=== PATIENT | male | born 1950 | race Caucasian/White ===

== ENCOUNTER → 2016-10-06 | Outpatient (CLI) | payer OTHER ==
[~2016-10-06] VITALS: Ht 188 cm; Wt 142.9 kg
[~2016-10-06] MED LIST: ADULT LOW DOSE81 MG PO; AUGMENTIN 875875 M1 PO; AUGMENTIN 875875 MG PO; BENADRYL25 MG PO; CALCIUM 600 +1 EAC1 PO; CARAFATE 1 GM TA1 G1 PO; COMPAZINE10 MG PO; FLONASE 0.05%50 MCG NASAL; FLONASE 0.05%50 MCG NS; GLUCOSAMINE SU500 MG PO; IBUPROFEN 200200 M1 PO; IRON PO; IRON325 PO; KEFLEX500 MG PO; LEVAQUIN 750 M750 MG PO; LEVSIN0.125 MG PO; LEXAPRO 10 MG T10 M1 PO; MSM500 MG PO; MUCINEX TA600 MG/TAB PO; MULTIVITAMINS PO; OMEPRAZOLE40 MG PO; PERCOCET 7.5-31 EACH PO; PREDNISONE 20 M20 M1 PO; PRILOSEC 20 MG20 MG PO; PROTONIX40 M1 PO; SUDAFED PE10 MG PO; SYNTHROID125 MCG PO; TUMS PO; VITAMIN D1000 UNI1 PO; VITCB500GO PO; XANAX 0.25 MG0.25 MG PO; ZOFRAN ODT4 MG PO
--- NOTE | ~2016-10-06 | P ---
[facility] [place] [address] PROCEDURE REPORT Name: DERRICK QUEZADA Room #: REG [facility]#: [id number] Admission: 10/06/16 Attend Phys: Miki Cortez MD Discharge: Date of : 48 Report #: [id number] THIS REPORT FOR: //name// CC: Miki Sousa MD DATE OF SERVICE: 10/06/2016 BRIEF HISTORY: The patient is a 66-year-old male with history of gastric bypass for weight loss in 2002. He has had previous ulcers and upper GI bleeding. He had upper GI symptoms last April and underwent endoscopy by Dr. Martinez that revealed ulcerations/erosive changes at the level of the anastomosis. He did improve, but in the past month, he has had increased abdominal pain while taking omeprazole. He presents for further evaluation of his recurrent symptoms. PREOPERATIVE DIAGNOSIS: History of ulcer disease and worsening abdominal pain. POSTOPERATIVE DIAGNOSES: 1. Mild diffuse gastritis. 2. Retained material in stomach consistent with gastroparesis. 3. Surgical changes in the stomach consistent with previous gastric bypass. MEDICATIONS: Deep sedation with propofol per anesthesia. SPECIMEN: None. ESTIMATED BLOOD LOSS: None. PROCEDURE: EGD. FINDINGS: Prior to propofol sedation, procedure of upper endoscopy discussed with the patient as well as potential risks and its complications. He indicates he understands and desires to proceed. DESCRIPTION OF PROCEDURE: With the patient in left lateral decubitus position, the [employer] video endoscope was inserted in the cervical esophagus under direct vision without difficulty. Examination of this organ through its entire length revealed normal esophageal mucosa. The squamocolumnar junction was identified and noted to be within normal limits. There is no evidence of Lainez mucosa. A hiatus hernia was not seen. The scope was advanced into the stomach. Solid food material was encountered. It was noted to be a mjfde-mt-lxnxzvyg amount. Some of this food did move into the small bowel as we inflated the stomach. Examination of mucosa revealed some erythema as well could be seen. No ulcers or erosions were seen. Biopsies last April were negative for H. pylori. [facility] [address] [place] [address] PROCEDURE REPORT Name: DERRICK QUEZADA Room #: REG [facility].#: [id number] Admission: 10/06/16 Attend Phys: Miki Cortez MD Discharge: Date of : 48 Report #: [id number] Upon retroflexion, no mass lesions were seen in the cardia. Examination of the distal gastric remnant revealed the surgical anastomosis was well healed and without ulcerations. It was widely patent. There was no evidence of obstruction. Scope was advanced across the anastomosis and the blind end of the jejunum was noted to be unremarkable. The scope was advanced down the efferent jejunal limb and the mucosa was intact without ulceration. We encountered a moderate amount of food material just distal to the anastomosis, which was likely food was moved out of the stomach when the scope entered the stomach. No obstructing lesions were seen. No ulcers were seen. At that point, the scope was slowly withdrawn and careful circumferential views confirmed the above findings. The patient tolerated the procedure well. CONDITION OF THE PATIENT UPON DISCHARGE: Following procedure, the patient drowsy, aroused, conversant and will be discharged home when fully ambulatory. INSTRUCTIONS TO THE PATIENT AND FAMILY AT THE TIME OF DISCHARGE: The patient is currently on omeprazole. He describes having abdominal pain. I do not see evidence of ulceration. The pain may be related to gastroparesis. Also, impact of omeprazole may be limited in this patient with previous gastric bypass surgery. We will add sucralfate, which he has taken in the past. Advised the patient to take smaller meals. We will also make arrangements for him to see a dietitian. It is noted the patient had tried metoclopramide in the past as he has been identified in the past; however, he developed diarrhea and stopped the metoclopramide. If symptoms are no better, he should return for followup in the office. He will otherwise return to care of Dr. Derrick Sousa. By: 0853 [id number] Miki Cortez MD /jordan
== END ==
LOC: GI 10-05 09:37
DX: K29.70 Gastritis, unspecified, without bleeding (principal); Z98.84 Bariatric surgery status; K21.9 Gastro-esophageal reflux disease without esophagitis; F10.21 Alcohol dependence, in remission; D64.9 Anemia, unspecified; I10 Essential (primary) hypertension
CPT/HCPCS: 62110; 62900

== ENCOUNTER → 2016-12-26 | Outpatient (CLI) | payer OTHER | LOC: MRI 08:15 | DX: H93.12 Tinnitus, left ear (principal); H90.5 Unspecified sensorineural hearing loss ==

== ENCOUNTER 2018-02-08 08:04 | Emergency (ER) | payer OTHER ==
[~2018-02-08] VITALS: Ht 188 cm; Wt 142.9 kg
--- NOTE | ~2018-02-08 | EKG ---
[place] [address] [employer] [facility] [place] [address] ELECTROCARDIOGRAM REPORT Name: HUGO QUEZADA Room #: [facility] M.R.#: [id number] Admission: Attend Phys: Discharge: Date of : 48 Report #: [id number] THIS REPORT FOR: //name// [facility] ED Test Date: 2018-02-08 Test Time: 08:24:06 Pat Name: HUGO QUEZADA Department: Room: Gender: M Certified Medical Aide: [facility] : 1950 Requested By: Antione Mcpherson Order Number: [id number] MD: Alexander Moore Measurements Intervals [place] Rate: 51 P: -16 GA: 240 QRS: -7 QRSD: 113 T: 41 QT: 442 QTc: 408 Interpretive Statements Sinus bradycardia Prolonged GA interval Borderline intraventricular conduction delay Compared to ECG 05/10/2016 06:28:19 First degree AV block now present Electronically Signed On 02-08-2018 8:48:08 CDT by Alexander Moore [email or web address] <ELECTRONICALLY SIGNED> By: Alexander Moore MD, [facility] 02/08/18 0848 0824 3 Alexander Moore MD, [facility] /EPI
[2018-02-08 08:52] LABS: ABSOLUTE NEUTROPHILS 6.1 thou/uL (1.4-8.2); BASOPHILS 0.2 % (0.0-2.0); EOSINOPHILS 1.7 % (0.0-3.0); HEMATOCRIT 42.8 % (42.0-52.0); HEMOGLOBIN 14.6 gm/dL (14.0-18.0); LYMPHOCYTES 14.5 % (24.0-44.0); MCH 31.5 pg (26.0-34.0); MCV 92.8 fL (80.0-100.0); MONOCYTES 7.9 % (1.0-8.0); PLATELET COUNT 199 thou/uL (150-400); POLYS 75.7 % (36.0-66.0); RBC 4.62 mil/uL (4.50-6.00); RDW 13.4 % (10.5-14.5); WBC 8.1 thou/uL (4.0-11.0)
[2018-02-08 09:04] LABS: ANION GAP 7 mmol/L (7-16); BUN 19 mg/dL (7-18); CALCIUM 8.7 mg/dL (8.5-10.1); CHLORIDE 107 mmol/L (98-107); CO2 25 mmol/L (21-32); CREATININE 0.9 mg/dL (0.7-1.3); GLUCOSE 140 mg/dL (74-106); POTASSIUM 4.4 mmol/L (3.5-5.1); SODIUM 139 mmol/L (136-145)
[2018-02-08 09:12] LABS: ALBUMIN 3.7 g/dL (3.4-5.0); MAGNESIUM 2.2 mg/dL (1.8-2.4); SGOT 20 U/L (15-37); SGPT 43 U/L (30-65); TOTAL BILIRUBIN 0.4 mg/dL (<0.1-1.0); TOTAL PROTEIN 6.6 g/dL (6.4-8.2); TROPONIN-I <0.06 ng/mL (<0.06)
[2018-02-08] MEDS ORDERED: VALIUM2 MG PO (10:12)
[2018-02-08] MEDS ORDERED: ANTIVERT25 MG PO (10:12)
[2018-02-08] MEDS ORDERED: AMOXICILLIN 50500 M1 PO (11:05)
== END 2018-02-08 11:36 | disposition home or self-care (01) ==
LOC: ER 08:04
PROVIDERS: Emergency Medicine
DX: H81.12 Benign paroxysmal vertigo, left ear (principal); H93.12 Tinnitus, left ear; R51 Headache; M54.2 Cervicalgia; R20.2 Paresthesia of skin; K21.9 Gastro-esophageal reflux disease without esophagitis; G47.30 Sleep apnea, unspecified; E11.9 Type 2 diabetes mellitus without complications; I10 Essential (primary) hypertension; Z91.041 Radiographic dye allergy status; Z88.1 Allergy status to other antibiotic agents; Z88.5 Allergy status to narcotic agent; Z88.2 Allergy status to sulfonamides; Z90.89 Acquired absence of other organs; Z90.49 Acquired absence of other specified parts of digestive tract; Z86.2 Personal history of diseases of the blood and blood-forming organs and certain disorders involving the immune mechanism

== ENCOUNTER → 2019-07-18 | Outpatient (CLI) | payer OTHER ==
[~2019-07-18] MED LIST changes: +AMOXICILLIN 50500 M1 PO; +ANTIVERT25 MG PO; +VALIUM2 MG PO
== END ==
LOC: CAT 09:40
DX: Z13.6 Encounter for screening for cardiovascular disorders (principal); E78.00 Pure hypercholesterolemia, unspecified; I25.10 Atherosclerotic heart disease of native coronary artery without angina pectoris

== ENCOUNTER → 2021-05-06 | Outpatient (CLI) | payer OTHER | LOC: SJCVCIMAG 06:51 | PROVIDERS: ATTEND Internal Medicine | DX: I08.1 Rheumatic disorders of both mitral and tricuspid valves (principal); I25.10 Atherosclerotic heart disease of native coronary artery without angina pectoris; I48.91 Unspecified atrial fibrillation; E03.9 Hypothyroidism, unspecified; R53.82 Chronic fatigue, unspecified; Z88.5 Allergy status to narcotic agent; Z88.1 Allergy status to other antibiotic agents; Z88.2 Allergy status to sulfonamides; Z88.8 Allergy status to other drugs, medicaments and biological substances; Z72.89 Other problems related to lifestyle; Z82.49 Family history of ischemic heart disease and other diseases of the circulatory system ==

== ENCOUNTER → 2021-05-28 | Outpatient (CLI) | payer OTHER ==
[~2021-05-28] VITALS: Ht 188 cm; Wt 137.4 kg
[~2021-05-28] MED LIST changes: +AZELASTINE205.5 MCG/ NARES; +CALCIUM + D SO1 EACH PO; +FISH OIL 1,0001 EAC9 PO; +PROBIOTIC1 EAC7 PO
[2021-05-28 08:06] VITALS: BP 141/87
[2021-05-28 08:53] LABS: HEMATOCRIT 41.8 % (42.0-52.0); HEMOGLOBIN 13.9 gm/dL (14.0-18.0); MCH 31.1 pg (26.0-34.0); MCHC 33.3 g/dL (28.0-37.0); MCV 93.4 fL (80.0-100.0); RBC 4.47 mil/uL (4.50-6.00); RDW 14.6 % (10.5-14.5)
--- NOTE | 2021-05-28 09:02 | EKG ---
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: : 1950 Requested By: Aaron Vanessa Order Number: [id number] MD: Alexander Moore Measurements Intervals [place] Rate: 68 P: NM: QRS: 40 QRSD: 108 T: 42 QT: 416 QTc: 443 Interpretive Statements Atrial fibrillation Compared to ECG 02/08/2018 08:24:06 Sinus bradycardia no longer present Electronically Signed On 05-28-2021 9:02:47 [employer] by Alexander Moore [email or web address] <ELECTRONICALLY SIGNED> By: Alexander Moore MD, [facility] 05/28/21 0902 0808 0808 Alexander Moore MD, FAC /EPI
[2021-05-28 09:15] LABS: CALCIUM 8.6 mg/dL (8.5-10.1); POTASSIUM 4.7 mmol/L (3.5-5.1)
--- NOTE | 2021-06-17 13:23 | CATHLAB ---
[facility] [place] [address] INVASIVE PROCEDURE REPORT Name: DERRICK QUEZADA [id number] Admission: 05/28/21 Attend Phys: Aaron Vanessa Discharge: Date of : 48 Report #: [id number] THIS REPORT FOR: cc: Derrick Sousa MD, William MD Lammoglia, Francisco J. MD ~ APPROVED REPORT Study performed: 05/28/2021 09:48:08 Patient Details Patient Status: Out-Patient Room #: The patient is a 71 year-old male Event Personnel Aaron Vanessa Manager Psychiatry, Boyd Baker RN RN, Fran Bay RTR Monitor, Jennifer Olivo RTR Scrub Procedures Performed Art Access - R femoral artery* Coronary Angiography Only [id number] CORANG [address]648 Initial Mod Sed Same Phys/QHP Gr5y [id number] Hemostasis with Manual pressure Indication Positive stress test, Chest pain Procedure Narrative The patient was brought electively to the Cardiac Catheterization Laboratory and was prepped and draped in a sterile manner. The Right Groin^ was infiltrated with 1% Lidocaine subcutaneous anesthesia. A PINNACLE 4FR Sheath #[id number] sheath was inserted into the RFA^. Coronary angiography was performed using coronary diagnostic catheters. The right coronary system was accessed and visualized with a JR4 catheter. The left coronary system was accessed and visualized with a JL4 catheter. Hemostasis was obtained with manual pressure following sheath removal without any complications. The patient tolerated the procedure well and there were no complications associated with the procedure. There was no hematoma. Intraoperative Conscious Sedation Sedation start time: 10:10 Case end Time: 10:38 [facility] [address] [address] INVASIVE PROCEDURE REPORT Name: PILARDERRICK LENA [facility]: [facility] [id number] Admission: 05/28/21 Attend Phys: Aaron Fan Discharge: Date of : 48 Report #: [id number] Fluoro Time: 4.80 minutes Dose: DAP 96967.60 cGycm2 1835 mGy Contrast Type and Amount: Omnipaque 55 ml Coronary Angiography The patient's coronary anatomy is right dominant. Diagnostic Cath Left Main Large-caliber vessel normal origin bifurcates left into descending left circumflex. Free of high-grade disease LAD Moderate caliber type III vessel which courses anteriorly giving rise to an early diagonal branch is diagonal is moderate in size and has mild plaquing of less than 25% proximally then reconstitutes continues on the anterolateral wall free of high-grade disease. The LAD proper then continues in the interventricular sulcus giving rise to several diagonal branches and terminating the inferoposterior wall without high-grade disease but with areas of mild (30% or less) irregularities. Diagonal 1 moderate in size and has mild plaquing of less than 25% proximally then reconstitutes continues on the anterolateral wall free of high-grade disease Diagonal 2 Small caliber vessel free of high-grade disease Circumflex Large-caliber nondominant vessel which courses in the AV groove giving rise to a small diminutive first branch. The vessel continues on gives rise to a large second branch which is bifurcating and essentially involves entire circumflex circulation. Proceeds in the lateral wall with luminal irregularities in these 2 bifurcating branches free of high-grade disease. The circumflex proper then continues as a small insignificant caliber in the posterior aspect left ventricle OM1 Small diminutive insignificant vessel OM2 bifurcating and essentially involves entire circumflex circulation. Proceeds in the lateral wall with luminal irregularities in these 2 bifurcating branches free of high-grade disease Right Coronary Large-caliber vessel normal origin proceeds in the AV groove giving rise to several right ventricular branches are small in size and free of high-grade disease. The proximal RCA has luminal irregularities of 30 to 35% or less noted. Continues posteriorly to the crux of the heart which gives rise to small posterior wall branches and numerous posterior wall branches are noted beyond the crux. There is mild irregularities present but no high-grade lesions as they coursed all the way to the apex in the inferoposterior and inferoposterolateral wall R PDA Small caliber vessel proceeding posterior interventricular [facility] [address] [place] [address] INVASIVE PROCEDURE REPORT Name: DERRICK QUEZADA Room #: PEGGY Rausch#: [id number] Admission: 05/28/21 Attend Phys: Aaron Fan Discharge: Date of : 48 Report #: [id number] sulcus with irregularities noted but no high-grade lesion Left Ventriculography Left Ventriculography was not performed. Conclusion 1. Mild nonobstructive coronary disease with plaquing and luminal irregularities noted 2. Normal hemodynamics Recommendations Cardiac Risk Reduction Program Medical Therapy <ELECTRONICALLY SIGNED> By: Aaron Vanessa MD 06/17/211322 22 22 Aaron Vanessa MD /INF
== END | disposition home or self-care (01) ==
LOC: CATH 07:32
PROVIDERS: ATTEND Internal Medicine
DX: R94.39 Abnormal result of other cardiovascular function study (principal); R07.9 Chest pain, unspecified; I25.10 Atherosclerotic heart disease of native coronary artery without angina pectoris; I10 Essential (primary) hypertension; E11.9 Type 2 diabetes mellitus without complications; I48.0 Paroxysmal atrial fibrillation; Z98.890 Other specified postprocedural states; Z79.899 Other long term (current) drug therapy; Z79.01 Long term (current) use of anticoagulants; Z91.041 Radiographic dye allergy status; Z88.2 Allergy status to sulfonamides; Z88.8 Allergy status to other drugs, medicaments and biological substances

== ENCOUNTER 2021-08-16 07:43 | Inpatient (IN) | payer OTHER ==
[~2021-08-16] VITALS: Ht 188 cm; Wt 136.1 kg
[2021-08-16 13:45] VITALS: BP 129/55
--- NOTE | 2021-08-16 14:25 | EKG ---
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
[2021-08-16] MEDS ORDERED: LEVOTHYROXINE150 MCG PO (15:14)
[2021-08-16] MEDS ORDERED: PROTONIX40 M2 PO (15:15)
[2021-08-16] MEDS ORDERED: PRADAXA110 MG PO (15:17)
--- NOTE | 2021-08-16 16:49 | NUR ---
ASSUMED CARE OF PATIENT AT APPX 1330 A DIRECT ADMIT. PATIENT A&OX4, ON RA, AFIB ON TELE. ADMISSION COMPLETED. IV INSERTED. AMIO BOLUS GIVEN WITH NO TELE CHANGES AND AMIO DRIP NOW RUNNING AT 33ML/HR. PLANS FOR CARIOCONVERSION IN AM IF PATIENT DOESN'T CONVERT ON OWN. CONSENTS SIGNED AND ON CHART.
[2021-08-16 19:34] VITALS: BP 134/62
== END 2021-08-17 | disposition home or self-care (01) | DRG 310 ==
LOC: 2N 07:43
PROVIDERS: ADMIT Internal Medicine; ATTEND Internal Medicine
PROC: 5A2204Z Restoration of Cardiac Rhythm, Single (ICD-10-PCS; principal; 2021-08-17)
DX: I48.0 Paroxysmal atrial fibrillation (principal); I25.10 Atherosclerotic heart disease of native coronary artery without angina pectoris; E89.0 Postprocedural hypothyroidism; E78.2 Mixed hyperlipidemia; Z20.822 Contact with and (suspected) exposure to COVID-19; K21.9 Gastro-esophageal reflux disease without esophagitis; Z88.2 Allergy status to sulfonamides; Z88.8 Allergy status to other drugs, medicaments and biological substances; Z88.6 Allergy status to analgesic agent; Z88.1 Allergy status to other antibiotic agents; Z91.041 Radiographic dye allergy status; Z90.49 Acquired absence of other specified parts of digestive tract
CPT/HCPCS: 10797